=== PATIENT | male | born 1955 | race African-American/Black ===

== ENCOUNTER 2016-12-03 09:42 | Emergency (ER) | payer MEDICARE ==
[2016-12-03] MEDS ORDERED: Ketorolac Tromethamine 60 MG/2 ML VIAL ONE (10:09)
== END 2016-12-03 10:32 | disposition home or self-care (01) ==
LOC: MADERS 09:42
DX: G89.29 Other chronic pain (principal); M54.9 Dorsalgia, unspecified; M79.661 Pain in right lower leg; F17.220 Nicotine dependence, chewing tobacco, uncomplicated
CPT/HCPCS: 96372; J1885

== ENCOUNTER 2019-04-16 16:46 | Emergency (ER) | payer MEDICARE | END 2019-04-16 17:26 | disposition home or self-care (01) | LOC: MADERS 16:46 | DX: S81.802A Unspecified open wound, left lower leg, initial encounter (principal); R23.4 Changes in skin texture; X58.XXXA Exposure to other specified factors, initial encounter | CPT/HCPCS: 99283 ==

== ENCOUNTER 2020-11-13 10:44 | Emergency (ER) | payer MEDICARE | END 2020-11-13 12:22 | disposition home or self-care (01) | LOC: MADERS 10:44 | DX: H69.83 Other specified disorders of Eustachian tube, bilateral (principal); F17.220 Nicotine dependence, chewing tobacco, uncomplicated | CPT/HCPCS: 99282 ==

== ENCOUNTER 2020-11-20 11:34 | Emergency (ER) | payer MEDICARE ==
[2020-11-20] MEDS ORDERED: Iopamidol 370 76% 100 ML VIAL ONE (12:04)
[2020-11-20] MEDS ORDERED: Pantoprazole 40 MG VIAL ONE (12:12)
[2020-11-20] MEDS ORDERED: Ondansetron PF 4 MG/2 ML Vial ONE (12:12)
[2020-11-20 12:13] LABS: #Lymphocytes 1.8 thou/uL (1.20-3.40); #Monocytes 0.4 thou/uL (0.11-0.59); #Neutrophils 1.5 thou/uL (1.40-6.50); %Basophils 0.8 % (0.0-1.0); %Eosinophils 0.9 % (0.0-10.0); %Lymphocytes 49.4 % (21.0-51.0); %Monocytes 9.8 % (0.0-10.0); %Neutrophils 39.2 % (42.0-75.0); Hemoglobin 14.7 g/dL (14.0-18.0); Mean Corpuscular HGB CONC 33.1 g/dL (32.0-36.0); Mean Corpuscular Hemoglobin 29.8 pg (27.0-31.0); Mean Platelet Volume 7.7 fL (7.4-10.4); Platelet Count 250 thou/uL (130-400); RBC Distribution Width 11.3 % (11.5-14.5); Red Blood Cell (RBC) Count 4.93 mill/uL (4.70-6.10); White Blood Cell (WBC) Count 3.7 thou/uL (4.8-10.8)
[2020-11-20] MEDS ORDERED: Mag-Al Plus 1200 MG/1200 MG/120 MG/30 ML UDCUP ONE (12:13)
[2020-11-20] MEDS ORDERED: Lidocaine Viscous Sol 2% 15 ml UD Cup ONE (12:13)
[2020-11-20 12:31] LABS: CRP (Inflammatory) 2.52 mg/dL (= or < 0.5)
[2020-11-20 12:34] LABS: ALT (SGPT) 121 U/L (8-55); AST (SGOT) 74 U/L (5-34); Albumin 4.4 g/dL (3.4-4.8); Alkaline Phosphatase 62 U/L (40-110); Anion Gap 16 mmol/L (10-20); BUN (Urea Nitrogen) 10 mg/dL (8.4-25.7); Bilirubin, Total 0.5 mg/dL (0.2-1.2); Calc. Creatinine Clearance 0 mL/min (70-130); Calcium 9.1 mg/dL (7.8-10.44); Carbon Dioxide 25 mmol/L (23-31); Chloride 102 mmol/L (98-107); Globulin 3.7 g/dL (2.4-3.5); Glucose 101 mg/dL (80-115); Lipase 80 U/L (8-78); Protein, Total 8.1 g/dL (5.8-8.1); Sodium 139 mmol/L (136-145)
[2020-11-20 12:38] LABS: Bilirubin Small (Negative); Blood, Urine Negative (Negative); Clarity Clear (Clear); Glucose, Urine (Dipstick) Negative (Negative); Ketone, Urine Trace mg/dL (Negative); Leukocyte Negative (Negative); Nitrite Negative (Negative); Protein, Urine (Dipstick) 30 mg/dL (Neg-Trace)
[2020-11-20 12:39] LABS: Bacteria/HPF Rare-Few HPF (None Seen); RBC/HPF 0-3 HPF (0-3); Squamous Epithelial 0-3 HPF (0-3); WBC/HPF 0-3 HPF (0-3)
[2020-11-20] MEDS ORDERED: Sodium Chloride 0.9% 1,000 ML ONE (12:44)
[2020-11-20 13:04] LABS: Cocaine Metabolite Screen Not Detected (NotDetected); Phencyclidine (PCP) Not Detected (NotDetected); THC/Cannabinoid Screen Not Detected (NotDetected)
[2020-11-20 13:05] LABS: Amphetamine Not Detected (NotDetected); Barbiturates Screen Not Detected (NotDetected); Benzodiazepine Screen Not Detected (NotDetected); Medtox Control Line Valid? VALID (VALID); Methadone Not Detected (NotDetected); Methamphetamine Not Detected (NotDetected); Opiate Screen Not Detected (NotDetected); Oxycodone Screen Not Detected (NotDetected); Tricyclic Screen Not Detected (NotDetected)
--- NOTE | 2020-11-20 14:11 | CT ---
CT ABDOMEN AND PELVIS PERFORMED WITH INTRAVENOUS CONTRAST ENHANCEMENT: 11/20/20 HISTORY: Diffuse abdominal pain x3 weeks. COMPARISON: 05/10/12, 05/27/11 studies. Lung bases show some minimal bibasilar parenchymal changes probably on the basis of some atelectasis . Does not have a definite typical appearance for ground glass infiltrate. Two areas of pleural based nodularity within the right lung actually noted on the previous 2011 study. Liver shows fatty change. Once again a focus of enhancement in the inferior most aspect of the right lobe is noted. Probably a NATALYA or possibly a small hemangioma. The pancreas and gallbladder regions are normal. Right and left adrenal glands and right and left kidneys are normal in size. No significant periaorti c or mesenteric adenopathy. CT OF PELVIS PERFORMED WITH CONTRAST ENHANCEMENT: The appendix is normal. No adenopathy or mass. There is bladder wall thickening probably on the basis of an element of bladder outlet obstruction related to mildly prominent prostate. IMPRESSION: 1. Some bibasilar lung changes probably on the basis of atelectasis. Early infiltrates are not d efinitely excluded. 2. Stable pleural based areas of nodularity in the right lower lobe. 3. Fatty change of the liver. Stable enhancing lesion right lobe probably a hemangioma or NATALYA l esion. 4. Normal appendix. 5. Bladder wall thickening probably on the basis of an enlarged prostate. POS: [place]
== END 2020-11-20 14:13 | disposition home or self-care (01) ==
LOC: MADERS 11:34
DX: R10.13 Epigastric pain (principal); H93.13 Tinnitus, bilateral; F17.220 Nicotine dependence, chewing tobacco, uncomplicated
CPT/HCPCS: 74177; 80053; 80306; 81003; 81015; 82150; 82550; 83690; 84484; 85025; 86140; 96374; 96375; C9113; J2405; J7050; Q9967

== ENCOUNTER 2021-08-04 09:56 | Emergency (ER) | payer MEDICARE | END 2021-08-04 11:05 | disposition home or self-care (01) | LOC: MADERS 09:56 | DX: H92.01 Otalgia, right ear (principal); J06.9 Acute upper respiratory infection, unspecified; G89.29 Other chronic pain; M54.50 Low back pain, unspecified; F17.220 Nicotine dependence, chewing tobacco, uncomplicated | CPT/HCPCS: 99283 ==

== ENCOUNTER 2022-05-04 10:34 | Emergency (ER) | payer MEDICARE | END 2022-05-04 11:10 | disposition home or self-care (01) | LOC: MADERS 10:34 | DX: H60.92 Unspecified otitis externa, left ear (principal); R29.700 NIHSS score 0; F17.220 Nicotine dependence, chewing tobacco, uncomplicated | CPT/HCPCS: 99282 ==

== ENCOUNTER 2022-10-18 14:35 | Emergency (ER) | payer MEDICARE ==
[~2022-10-18 14:35] MED LIST: Iopamidol 370 76% 100 ML VIAL ONE
[2022-10-18 15:23] LABS: Bilirubin Negative (Negative); Blood, Urine Negative (Negative); Clarity Clear (Clear); Glucose, Urine (Dipstick) 100 mg/dL (Negative); Ketone, Urine Trace mg/dL (Negative); Leukocyte Negative (Negative); Nitrite Negative (Negative); Protein, Urine (Dipstick) 30 mg/dL (Neg-Trace); pH, Urine 6.5 (5.0-9.0)
[2022-10-18 15:34] LABS: Specific Gravity, Urine 1.028 (1.002-1.036)
[2022-10-18 15:40] LABS: #Basophils 0.1 thou/uL (0.0-0.2); #Eosinphils 0.1 thou/uL (0.0-0.7); #Lymphocytes 1.8 thou/uL (1.20-3.40); #Monocytes 0.4 thou/uL (0.11-0.59); %Basophils 1.7 % (0.0-1.0); %Eosinophils 1.4 % (0.0-10.0); %Lymphocytes 42.8 % (21.0-51.0); %Monocytes 8.9 % (0.0-10.0); %Neutrophils 45.3 % (42.0-75.0); Hemoglobin 13.4 g/dL (14.0-18.0); Mean Corpuscular HGB CONC 33.7 g/dL (32.0-36.0); Mean Corpuscular Hemoglobin 30.7 pg (27.0-31.0); Mean Platelet Volume 8.7 fL (7.4-10.4); Platelet Count 168 10x3/uL (130-400); RBC Distribution Width 11.2 % (11.5-14.5); Red Blood Cell (RBC) Count 4.37 mill/uL (4.70-6.10); White Blood Cell (WBC) Count 4.3 10x3/uL (4.8-10.8)
[2022-10-18 15:42] LABS: Bacteria/HPF Rare-Few HPF (None Seen); RBC/HPF 0-3 HPF (0-3); Squamous Epithelial 0-3 HPF (0-3)
[2022-10-18 15:55] LABS: ALT (SGPT) 62 U/L (8-55); AST (SGOT) 54 U/L (5-34); Albumin 4.4 g/dL (3.4-4.8); Alkaline Phosphatase 42 U/L (40-110); Anion Gap 13 mmol/L (10-20); BUN (Urea Nitrogen) 5 mg/dL (8.4-25.7); Bilirubin, Total 0.6 mg/dL (0.2-1.2); Calc. Creatinine Clearance 0 mL/min (70-130); Calcium 9.5 mg/dL (7.8-10.44); Carbon Dioxide 26 mmol/L (23-31); Chloride 106 mmol/L (98-107); Estimated GFR 93; Globulin 2.7 g/dL (2.4-3.5); Glucose 194 mg/dL (80-115); Lipase 48 U/L (8-78); Potassium 4.5 mmol/L (3.5-5.1); Protein, Total 7.1 g/dL (5.8-8.1); Sodium 140 mmol/L (136-145)
[2022-10-18] MEDS ORDERED: Ondansetron PF 4 MG/2 ML Vial ONE (16:14)
== END 2022-10-18 17:58 | disposition home or self-care (01) ==
LOC: MADERS 14:35
DX: R10.9 Unspecified abdominal pain (principal); H92.01 Otalgia, right ear; F17.220 Nicotine dependence, chewing tobacco, uncomplicated; Z20.822 Contact with and (suspected) exposure to COVID-19
CPT/HCPCS: 36415; 74177; 80053; 81003; 81015; 83690; 85025; 87804; 96374; J2405; Q9967; U0003; U0005

== ENCOUNTER 2022-10-25 19:40 | Emergency (ER) | payer MEDICARE ==
[~2022-10-25 19:40] MED LIST changes: -Iopamidol 370 76% 100 ML VIAL ONE; +Iopamidol 370 76% 125 ML VIAL FS ONE; +Sodium Chloride 0.9% 100 ML BAG ONE
[2022-10-25 20:37] LABS: #Basophils 0.1 thou/uL (0.0-0.2); #Eosinphils 0.1 thou/uL (0.0-0.7); #Lymphocytes 2.4 thou/uL (1.20-3.40); #Monocytes 0.6 thou/uL (0.11-0.59); #Neutrophils 2.3 thou/uL (1.40-6.50); %Basophils 1.9 % (0.0-1.0); %Eosinophils 1.8 % (0.0-10.0); %Lymphocytes 43.7 % (21.0-51.0); %Monocytes 10.2 % (0.0-10.0); %Neutrophils 42.4 % (42.0-75.0); Hemoglobin 14.6 g/dL (14.0-18.0); Mean Platelet Volume 8.6 fL (7.4-10.4); Platelet Count 222 10x3/uL (130-400); RBC Distribution Width 11.7 % (11.5-14.5); White Blood Cell (WBC) Count 5.4 10x3/uL (4.8-10.8)
[2022-10-25 20:41] LABS: PTT 29.3 sec (22.9-36.1); Prothrombin Time 13.7 sec (12.0-14.7)
[2022-10-25 20:49] LABS: ALT (SGPT) 67 U/L (8-55); AST (SGOT) 39 U/L (5-34); Albumin 4.8 g/dL (3.4-4.8); Alkaline Phosphatase 46 U/L (40-110); Anion Gap 15 mmol/L (10-20); BUN (Urea Nitrogen) 6 mg/dL (8.4-25.7); Bilirubin, Total 0.6 mg/dL (0.2-1.2); CK (CPK) 292 U/L (30-200); Calc. Creatinine Clearance 0 mL/min (70-130); Calcium 10.1 mg/dL (7.8-10.44); Carbon Dioxide 24 mmol/L (23-31); Chloride 104 mmol/L (98-107); Estimated GFR 80; Glucose 209 mg/dL (80-115); Potassium 4.1 mmol/L (3.5-5.1); Protein, Total 7.8 g/dL (5.8-8.1); Sodium 139 mmol/L (136-145)
[2022-10-25] MEDS ORDERED: Aspirin Chewable 81 MG TAB ONE (22:01)
[2022-10-25] MEDS ORDERED: Sodium Chloride 0.9% 1,000 ML ONE (23:13)
[2022-10-25] MEDS ORDERED: Atorvastatin Calcium 40 MG TAB PO SCH (23:30)
[2022-10-26] MEDS ORDERED: Milk Of Magnesia 30 ML UDCUP ONE (12:57)
[2022-10-26 20:23] LABS: Cardiac Risk 6.5 (Less than 4.5)
[2022-10-27 12:28] LABS: Hemoglobin A1c 9.9 % (4.0-6.0)
== END 2022-10-27 09:32 | disposition short-term general hospital (02) ==
LOC: MADERS 19:40
DX: R20.2 Paresthesia of skin (principal); F17.220 Nicotine dependence, chewing tobacco, uncomplicated
CPT/HCPCS: 70450; 70496; 70498; 80053; 80061; 82550; 83036; 84484; 85025; 85610; 85730; 93005; J7050; Q9967